=== PATIENT | male | born 1945 | race Caucasian/White ===

== ENCOUNTER 2021-02-07 17:28 | Emergency (ER) | payer MEDICARE, SELFPAY ==
[2021-02-07 17:31] VITALS: BP 132/68; PULSE 76; RESP 16; TEMP 36.5; O2SAT 99
[2021-02-07 18:48] LABS: Basophils Absolute Auto 0.1 K/mm3 (0.0-0.1); Basophils Percent Auto 0.7 % (0.2-1.2); Eosinophils Absolute Auto 0.1 K/mm3 (0-0.3); Eosinophils Percent Auto 1.3 % (0-4.4); Hematocrit 42.5 % (42.0-52.0); Hemoglobin 14.2 g/dL (14.0-18.0); Immature Granulocyte Absolute 0.02 K/mm3 (0.00-0.031); Immature Granulocyte Percent A 0.3 % (0-0.5); Lymphocytes Percent Auto 16.1 % (18.3-44.2); Mean Corpuscular HGB Conc 33.4 g/dl (32-36); Mean Corpuscular Hemoglobin 30.7 pg (26-34); Mean Corpuscular Volume 91.8 fl (80-100); Mean Platelet Volume 10.4 fl (7.4-10.4); Monocytes Absolute Auto 0.6 K/mm3 (0.1-0.6); Monocytes Percent Auto 8.9 % (2.6-8.5); Neutrophils Percent Auto 72.7 % (45.5-73.1); Platelet Count Result 250 k/mm3 (150-375); Red Blood Count 4.63 M/mm3 (4.6-6.20); Red Cell Distribution Width 14.1 % (11.5-14.5); White Blood Count 6.8 K/mm3 (4.5-10.0)
--- NOTE | 2021-02-07 18:54 | ED.EPISTAXIS ---
HPI - Epistaxis General Chief complaint: Epistaxis Stated complaint: nosebleed Time Seen by Provider: 02/07/21 18:06 Source: patient and family Mode of arrival: ambulatory Limitations: no limitations History of Present Illness HPI Narrative: This is a 75-year-old male that presents to the emergency department for epistaxis this afternoon. Reports he had a nosebleed out of the left nare that lasted a couple of hours which prompted him to be seen. No active bleeding currently. He does report he has had frequent nosebleeds recently. He has not been evaluated by ENT for this. Denies fevers. Review of Systems Review of Systems: CONSTITUTIONAL: Denies fever ENT: Reports epistaxis All systems reviewed & are unremarkable except as noted in HPI and below PMFSH Social History Social History (Updated 02/07/21 @ 18:55 by Rena Walter PA-C) Smoking status: Never smoker Exam Narrative: GENERAL: Well-appearing, well-nourished, and in no acute distress. HEAD: Normocephalic, atraumatic. EYES: EOMI. ENT: Dried blood in the left nare. Mucous membranes moist. Oropharynx without tonsillar hypertrophy exudate or other lesions. CHEST: No respiratory distress. HEART: Regular rate EXTREMITIES: Normal range of motion. No edema. SKIN: Warm, dry, no rash. NEURO: No focal deficits. Alert and oriented x3. PSYCH: Normal mood and affect Course Vital Signs Vital signs: Vital Signs Temperature 97.7 F 02/07/21 17:31 Pulse Rate 76 02/07/21 17:31 Respiratory Rate 16 02/07/21 17:31 Blood Pressure 132/68 02/07/21 17:31 Pulse Oximetry 99 02/07/21 17:31 Temperature 97.7 F 02/07/21 17:31 Pulse Rate 76 02/07/21 17:31 Respiratory Rate 16 02/07/21 17:31 Blood Pressure 132/68 02/07/21 17:31 Pulse Oximetry 99 02/07/21 17:31 Procedures Epistaxis Control left: Epistaxis Control Date: 02/07/21 Epistaxis Control Time: 19:54 Nose Prepped With: oxymetazoline Direct Inspection: unable to visualize (no active bleeding on exam) Cautery Used: none Device Inserted: other (Afrin with cottonball) Patient Tolerated Procedure: well and no complications MDM - Epistaxis MDM Narrative Medical decision making narrative: Patient presents to the emergency department for epistaxis today. Reports history of intermittent frequent epistaxis recently. Patient's vitals are stable. His hemoglobin is normal. Bleeding had stopped prior to arrival. I did apply cottonball with Afrin to the nare and left in place for about 15 minutes. This was removed without any further bleeding. Patient was instructed to follow-up with ENT. He was given warnings to return to the ER Lab Data Attestation: I reviewed the patient's lab results. Result diagrams: 02/07/21 18:41 Labs: Lab Results 02/07/21 02/07/21 Range/Units 18:41 18:41 WBC 6.8 (4.5-10.0) K/mm3 RBC 4.63 (4.6-6.20) M/mm3 Hgb 14.2 (14.0-18.0) g/dL Hct 42.5 (42.0-52.0) % MCV 91.8 (80-100) fl MCH 30.7 (26-34) pg MCHC 33.4 (32-36) g/dl RDW 14.1 (11.5-14.5) % Plt Count 250 (150-375) k/mm3 MPV 10.4 (7.4-10.4) fl Immature Gran % (Auto) 0.3 (0-0.5) % Neut % (Auto) 72.7 (45.5-73.1) % Lymph % (Auto) 16.1 L (18.3-44.2) % [place] % (Auto) 8.9 H (2.6-8.5) % Eos % (Auto) 1.3 (0-4.4) % Baso % (Auto) 0.7 (0.2-1.2) % Lymph # (Auto) 1.10 (0.9-3.2) K/mm3 [place] # (Auto) 0.6 (0.1-0.6) K/mm3 Eos # (Auto) 0.1 (0-0.3) K/mm3 Baso # (Auto) 0.1 (0.0-0.1) K/mm3 Abs Immat Gran (auto) 0.02 (0.00-0.031) K/mm3 Absolute Neuts (auto) 5.0 (1.3-6.7) K/mm3 Absolute Nucleated RBC 0.0 (0.0-0.012) K/mm3 Nucleated RBC % 0.0 (0.0-0.2) % PT 12.9 (11.1-14.7) Seconds INR 1.0 APTT 31.4 (22.3-36.8) SECONDS Critical Care Time Critical Care Time Critical Care Time: No Discharge Plan Discharge Clinical Impression: Epistaxis Patient Disposition
[2021-02-07 18:57] LABS: Prothrombin Time 12.9 Seconds (11.1-14.7)
[2021-02-07 18:58] LABS: Partial Thromboplastin Time 31.4 SECONDS (22.3-36.8)
== END 2021-02-07 20:03 | disposition home or self-care (01) ==
PROVIDERS: Physician Assistant; Emergency Provider Emergency Medicine
DX: R04.0 Epistaxis (principal)
CPT/HCPCS: 36415; 85025; 85610; 85730; 99283; A9270